=== PATIENT | female | born 1985 | race Caucasian/White ===

== ENCOUNTER → 2018-08-23 | Outpatient (CLI) | payer MEDICARE ==
--- NOTE | 2018-08-23 12:54 | RAD ---
EXAM: Pelvis CLINICAL HISTORY: PAIN IN RIGHT KNEE AND RIGHT HIP COMPARISON STUDY: None TECHNICAL: AP pelvis x-ray FINDINGS: Internal fixation of left pelvis appears intact. The operative metal partially obscures the left hip but there are at least mild osteoarthritic changes. The pelvic ring appears intact. Both hips are in alignment. IMPRESSION: No acute fracture identified. Internal fixation of the left pelvis. Electronically signed by: Alireza Barron MD 08/23/2018 12:51 PM [facility]
--- NOTE | 2018-08-23 12:56 | RAD ---
EXAM: Knee,Right 2 or More Views CLINICAL HISTORY: PAIN IN RIGHT KNEE AND RIGHT HIP COMPARISON STUDY: None. TECHNICAL: 4 x-ray views of the knee. FINDINGS: Views of the knee demonstrate no fracture or dislocation. There is no acute bone abnormality. There is a very small joint effusion. Small osteophytes are seen at the periphery of the patella and medial compartment. There is no joint space loss IMPRESSION: 1. Very small joint effusion. 2. Very mild osteophytic changes of the patella and medial compartment. Electronically signed by: Alireza Barron MD 08/23/2018 12:53 PM [facility]
== END ==
LOC: RAD 08:12
PROVIDERS: ATTEND Orthopaedic Surgery
DX: M25.561 Pain in right knee (principal); M25.551 Pain in right hip

== ENCOUNTER → 2018-08-26 | Outpatient (CLI) | payer MEDICARE ==
--- NOTE | 2018-08-26 12:10 | MRI ---
MRI right knee without contrast INDICATION: Knee pain medial side since fall 3 weeks ago TECHNIQUE: Noncontrast MR imaging right knee FINDINGS: There is lateral patellar tracking/subluxation nonreduced moderate. 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 The trochlear lesion measures up to 9.5 mm wide. Large joint effusion/hemarthrosis. Diffuse ACL tear with anterior prolapse of fibers effectively full-thickness. Lateral femoral condylar notch and posterior lateral tibial plateau pivot shift contusions/impactions. PCL is intact. Extensor tendons are intact. Mild grade 1 fibular collateral sprain. No pricila disruption of the collateral ligaments. There is a delaminating oblique/radial tear posterior horn lateral meniscus reference coronal series 601 image 22. 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 Electronically signed by: Moo Sky MD 08/26/2018 12:07 PM [facility]
== END ==
LOC: MRI 10:13
PROVIDERS: ATTEND Orthopaedic Surgery
DX: S83.411A Sprain of medial collateral ligament of right knee, initial encounter (principal); S83.511A Sprain of anterior cruciate ligament of right knee, initial encounter; S83.011A Lateral subluxation of right patella, initial encounter

== ENCOUNTER → 2019-03-10 | Outpatient (CLI) | payer MEDICARE | LOC: LAB.O 09:53 | PROVIDERS: ATTEND Nurse Practitioner Family | DX: Z00.01 Encounter for general adult medical examination with abnormal findings (principal); I10 Essential (primary) hypertension; R07.89 Other chest pain; E55.9 Vitamin D deficiency, unspecified; E03.9 Hypothyroidism, unspecified; R73.01 Impaired fasting glucose; E78.2 Mixed hyperlipidemia; E66.9 Obesity, unspecified ==